=== PATIENT | male | born 1945 | race Caucasian/White ===

== ENCOUNTER → 2018-04-29 08:59 | Outpatient (CLI) | payer MEDICARE, SELFPAY ==
--- NOTE | 2018-04-29 09:09 | US_ITS ---
STUDY: SCROTUM ULTRASOUND REASON FOR EXAM: Male, 72 years old. Bilateral hydroceles TECHNIQUE: Ultrasound evaluation of the scrotum was performed with color Doppler and static murphy-scale imaging. COMPARISON: None. FINDINGS: RIGHT TESTICLE INTRATESTICULAR: There is a normal size of the right testicle. The right testicle measures 3.9 x 2.9 x 2.8 cm. There is a homogenous echotexture. There is normal arterial and normal venous vascularity. There is no demonstrated right testicular mass or cyst. EXTRATESTICULAR: The epididymis is normal in size. The epididymis head measures 2.5 x 2.1 x 1.2 cm. There is normal vascularity of the epididymis. Epididymis head cyst measuring 1.4 x 1.2 x 0.9 cm. There is a large hydrocele. There is no demonstrated varicocele. There is no demonstrated extratesticular mass or cyst. Mild scrotal wall thickening is noted measuring up to 9 mm. LEFT TESTICLE INTRATESTICULAR: There is a normal size of the left testicle. The left testicle measures 3.7 x 2.7 x 2.2 cm. There is a homogenous echotexture. There is normal arterial and normal venous vascularity. There is no demonstrated left testicular mass or cyst. EXTRATESTICULAR: The epididymis is normal in size. The epididymis head measures 1.4 x 1.0 x 0.7 cm. There is normal vascularity of the epididymis. There is no demonstrated epididymal cystic structure. There is a moderate size hydrocele. There is no demonstrated varicocele. There is no demonstrated extratesticular mass or cyst. US/Testicular with Arterial Flow IMPRESSION: Bilateral hydroceles, large on the right and moderate on the left. Cyst in the right epididymis measuring up to 14 mm. Mild right scrotal wall thickening. Electronically Signed: Luis Alberto Mendoza MD at 11:43 EST Tel , Service support ,
[2018-04-29 11:49] LABS: PSA,Total - Annual Screen 0.21 ng/mL (0.00-4.00)
== END ==
PROVIDERS: Family Provider Internal Medicine; PCP Internal Medicine
DX: N40.1 Benign prostatic hyperplasia with lower urinary tract symptoms (principal); R35.1 Nocturia; N43.2 Other hydrocele
CPT/HCPCS: 36415; 76870; 84153; 93976; G0103

== ENCOUNTER → 2018-06-13 11:11 | Outpatient (CLI) | payer MEDICARE, SELFPAY ==
[2017-02-08 08:42] VITALS: BMI 29.2
[2018-06-13 12:47] LABS: Thyroid Stim Hormone (TSH) 1.08 uIU/mL (0.358-3.74)
[2018-06-16 16:05] LABS: Testosterone, Free 6.83 ng/dL (5.00-21.00)
[2018-06-17 08:14] LABS: Testosterone, Total 273 ng/dL (264-916)
== END ==
PROVIDERS: Family Provider Internal Medicine; PCP Internal Medicine
DX: R53.83 Other fatigue (principal)
CPT/HCPCS: 36415; 84402; 84403; 84443

== ENCOUNTER → 2019-05-09 11:18 | Outpatient (CLI) | payer MEDICARE, SELFPAY ==
[2017-02-08 08:42] VITALS: BMI 29.2
[2019-05-09 12:17] LABS: PSA,Total - Annual Screen 0.14 ng/mL (0.00-4.00)
== END ==
PROVIDERS: Family Provider Internal Medicine; PCP Internal Medicine
DX: Z12.5 Encounter for screening for malignant neoplasm of prostate (principal)
CPT/HCPCS: 36415; 84153; G0103

== ENCOUNTER → 2019-12-01 09:38 | Outpatient (CLI) | payer MEDICARE, SELFPAY ==
[2017-02-08 08:42] VITALS: BMI 29.2
[2019-12-01 10:55] LABS: BUN 15 mg/dL (7-18); Glucose 105 mg/dL (74-106)
[2019-12-01 10:56] LABS: ALB/GLOB Ratio 1.1 RATIO (0.9-2.4); AST(SGOT) 24 U/L (15-37); Alanine Aminotransfer ALT/SGPT 38 U/L (16-61); Albumin, Serum 3.6 g/dL (3.2-5.0); Alkaline Phosphatase 55 U/L (45-117); Anion Gap 4 (5-15); BUN/Creat Ratio 13.6 RATIO (10-20); CPK Total, Creatine Kinase 461 U/L (39-308); Calcium,Total 8.5 mg/dL (8.5-10.1); Chloride 110 mmol/L (98-107); Cholesterol 138 mg/dL (200); EST Glomerular Filtration Rate 70 mL/min (>60); Est Glom Filt Rate - Afr Amer 85 mL/min (>60); Globulin 3.3 g/dL (2.2-4.2); High Density Lipoprotein 49 mg/dL; Potassium 4.3 mmol/L (3.5-5.1); Protein, Total 6.9 g/dL (6.4-8.2); Sodium Level 142 mmol/L (136-145); Triglycerides 151 mg/dL; Very Low Density Lipoprotein 30 mg/dL (5-40)
[2019-12-01 13:11] LABS: BNP,B-Type NATRIURETIC PEPTIDE 88.4 pg/mL (0-100)
== END ==
PROVIDERS: PCP Internal Medicine
DX: I50.32 Chronic diastolic (congestive) heart failure (principal); E78.5 Hyperlipidemia, unspecified
CPT/HCPCS: 36415; 80053; 80061; 82550; 83880

== ENCOUNTER → 2020-01-06 | Outpatient (CLI) | payer MEDICARE, SELFPAY ==
[2020-01-06 09:33] LABS: Cholesterol 140 mg/dL (200); High Density Lipoprotein 49 mg/dL; Triglycerides 106 mg/dL; Very Low Density Lipoprotein 21 mg/dL (5-40)
== END | disposition home or self-care (01) ==
LOC: LAB 08:07
PROVIDERS: PCP Internal Medicine
DX: I25.10 Atherosclerotic heart disease of native coronary artery without angina pectoris (principal); E78.5 Hyperlipidemia, unspecified; I44.0 Atrioventricular block, first degree; I49.3 Ventricular premature depolarization; I50.32 Chronic diastolic (congestive) heart failure
CPT/HCPCS: 36415; 80061; 83880

== ENCOUNTER 2021-08-02 12:18 | Emergency (ER) | payer MEDICARE, SELFPAY ==
[2021-08-02 12:22] VITALS: BP 107/66; PULSE 47; RESP 18; TEMP 37.1; O2SAT 95; BMI 31.1
--- NOTE | 2021-08-02 13:19 | EKG12_ITS ---
Test Reason : CHEST Blood Pressure : / mmHG Vent. Rate : 052 BPM Atrial Rate : 052 BPM P-R Int : 456 ms QRS Dur : 118 ms QT Int : 462 ms P-R-T Axes : 025 -58 -36 degrees QTc Int : 429 ms Sinus bradycardia with 1st degree A-V block Left anterior fascicular block Poor R wave progression Abnormal ECG Confirmed by RON CAMPBELL, MALOU ([id number]), food expeditor KWAN GARCIA ([id number]) on 08/04/2021 8:14:01 AM Referred By: KEANU Confirmed By:MALOU VELASQUEZ MD
--- NOTE | 2021-08-02 13:36 | EX.ED.DYSGE1 ---
HPI History of Present Illness Chief Complaint: Syncope Informant: patient and spouse/S.O. Narrative Narrative: Patient presents with a near syncopal episode. He had gone to urgent care because he had had an accidental sandblasted injury of the dorsum of his left hand yesterday. They were cleaning and irrigating this. He got up to wash off his hands at the end and when he stood up he got lightheaded and dizzy. They laid him on the ground. He states he did not pass all the way out but he was close. He never had chest pain or palpitations. He feels fine now. He thinks this was a combination of the medicines that he used, irrigating it out and the fact that he just took his second ever diltiazem dose this morning. He started one yesterday afternoon and then 1 today. His heart rate has been slower in about 50s. [facility] Medical History Atrial fibrillation Congestive heart failure (CHF) Coronary artery disease Home Medications finasteride 5 mg PO QHS 09/23/15 [History Last Taken Unknown] aspirin 81 mg PO DAILY@0800 11/30/15 [History Last Taken Unknown] atorvastatin 80 mg PO DAILY 08/02/21 [History Last Taken Unknown] clopidogrel 75 mg PO DAILY 08/02/21 [History Last Taken Unknown] diltiazem HCl 60 mg PO DAILY 08/02/21 [History Last Taken Unknown] dutasteride 0.5 mg PO DAILY 08/02/21 [History Last Taken Unknown] escitalopram oxalate 10 mg PO QHS 08/02/21 [History Last Taken Unknown] isosorbide mononitrate 30 mg PO DAILY 08/02/21 [History Last Taken Unknown] pantoprazole 40 mg PO DAILY 08/02/21 [History Last Taken Unknown] Allergy/AdvReac Type Severity Reaction Status Date / Time [facility] [[facility] Allergy Rash Verified 08/02/21 12:25 Surgical History H/O heart artery stent History of cardiac radiofrequency ablation (RFA) Social History Smoking Status: Former smoker ROS ROS ED Constitutional Constitutional ED: Denies chills, fever(s) or sweats Eyes Eyes: Denies blurry vision or change in vision ENT ENT ED: Denies rhinorrhea Cardiovascular Cardiovascular: Denies chest pain, palpitations or racing heartbeat Respiratory/Chest Respiratory/Chest: Denies cough or dyspnea Gastrointestinal Gastrointestinal: Denies nausea or vomiting Musculoskeletal Musculoskeletal: Denies arthralgias or myalgias Integumentary Denies rash Neurologic Neurologic: Denies headache(s), paresthesias or weakness Endocrine Endocrinology: Denies polydipsia or polyuria Allergic/Immunologic Allergic/Immunologic ED: Denies mouth swelling or urticaria EXAM Physical Exam Const Vital Signs: 08/02/21 12:22 08/02/21 12:30 08/02/21 14:00 Temperature 98.7 F Temperature Source Temporal Pulse Rate 47 L 51 L Respiratory Rate 18 18 Respiratory Pattern Normal Blood Pressure 107/66 106/85 H Blood Pressure Mean 79 92 Pulse Ox 95 96 Oxygen Delivery Method Room Air Room Air 08/02/21 14:56 Temperature Temperature Source Pulse Rate 52 L Respiratory Rate 19 H Respiratory Pattern Blood Pressure 120/72 Blood Pressure Mean 88 Pulse Ox 95 Oxygen Delivery Method Room Air Positive well nourished and well developed General Appearance ED: well developed and NAD; Negative for cyanotic or diaphoretic HEENT Reports moist mucous membranes Eyes General Eye ED: Negative for pale conjunctiva or scleral icterus Neck no JVD Chest Wall inspection of chest normal and palpation of chest normal Resp normal respiratory effort and clear to auscultation bilaterally Effort and Inspection: Negative for pain with movement Auscultation: Negative for rales, rhonchi or wheezes Cardio regular rhythm Rate: bradycardia and other Other Details: Heart rate is about 55-60. It is regular. It appears to be a first-degree AV block. GI normal to inspection, nondistended, normoactive bowel sounds and non-tender Palpation: soft Back/Spine General Back: CVA tenderness Extremity normal to inspection Extremity Narrative: Patient had been a noted area on the dorsum of his left hand consistent with a sandblasting localized injury. No bleeding. No sign of infection. General Extremety ED: Negative for tenderness Neuro oriented x3 Sensorium / Orientation: alert Psych mental status grossly normal Skin Skin Narrative: Sandblaster erosion dorsum of left hand about 1-1.5 cm around. MDM MDM MDM Narrative Medical decision making narrative: Patient CBC shows minimal anemia at 12.5. White count platelets are normal. Electrolytes show no marked abnormalities. Patient's heart rate is staying in upper 50s to low 60s. He feels fine. He wants to go home. We did have his loop recorder queried. The last event they recorded was 30 July. I talked to the tach. Most of his events have been related to atrial fibrillation which he knows of. He has had about 9% A. fib. The patient feels that this episode today was related to the anesthesia, washing his hand, getting up quickly and the new medicine that he is taken twice in the last day. He is going to hold the diltiazem and speak with his escalator attendant. I think this is a reasonable plan. Lab Data Attestation: I reviewed the patient's lab results. Labs: Laboratory Results - last 24 hr 08/02/21 08/02/21 12:40 12:40 WBC 6.6 RBC 4.09 L Hgb 12.5 L Hct 38.6 L MCV 94.4 H MCH 30.6 MCHC 32.4 RDW Std Deviation 45.8 H RDW Coeff of Gabby 13.2 Plt Count 194 MPV 11.7 Immature Gran % (Auto) 0.300 Neut % (Auto) 70.6 H Lymph % (Auto) 18.4 L [place] % (Auto) 9.6 Eos % (Auto) 0.8 Baso % (Auto) 0.3 Absolute Neuts (auto) 4.7 Absolute Lymphs (auto) 1.21 Nucleated RBC % 0 Sodium 140 Potassium 3.9 Chloride 109 H Carbon Dioxide 27.0 Anion Gap 4 L BUN 19 H Creatinine 1.12 Estim Creat Clear Calc 62.56 Est GFR (MDRD) Af Amer 83 Est GFR (MDRD) Non-Af 68 BUN/Creatinine Ratio 17.0 Glucose 109 H Calcium 8.7 EKG Initial EKG: Comments: EKG done for near syncope read by me shows a sinus rhythm with bradycardic rate at 52 and a first-degree AV block. No acute ST elevation or depression. No ventricular ectopy. He has first-degree AV block. QRS duration is just within normal limits at 118 ms. QTc is normal. Discharge Plan Triage Chief Complaint: Syncope ED Provider: Quinton Benitez Dx/Rx/DC Orders Clinical Impression: Syncope, near, Bradycardia, Medication adverse effect Instructions: ED Dizziness or Syncope ... Prescriptions: No Action aspirin 81 MG tablet,chewable 81 mg PO DAILY@0800 RF: 0 atorvastatin 80 mg tablet 80 mg PO DAILY RF: 0 isosorbide mononitrate 30 mg tablet extended release 24 hr 30 mg PO DAILY RF: 0 clopidogrel 75 mg tablet 75 mg PO DAILY RF: 0 pantoprazole 40 mg tablet,delayed release (DR/EC) 40 mg PO DAILY RF: 0 diltiazem HCl 60 mg tablet 60 mg PO DAILY RF: 0 escitalopram oxalate 10 mg tablet 10 mg PO QHS RF: 0 dutasteride 0.5 mg capsule 0.5 mg PO DAILY RF: 0 finasteride 5 MG tablet 5 mg PO QHS RF: 0 Primary Care Provider: Jaison Charles Referrals: Jaison Charles MD [Primary Care Provider] - As Needed Activity Restrictions/Additional Instructions: Follow-up with your escalator attendant as soon as possible to discuss further medication and plans. Disposition Disposition: Home, Self Care
[2021-08-02 13:49] LABS: Absolute Lymphocyte Count 1.21 X10^3/uL (0.83-4.51); Absolute Neutrophil Count 4.7 X10^3/uL (2.0-7.7); Basophil# 0.02 X10^3/uL; Basophil% 0.3 % (0-1); Eosinophil# 0.05 X10^3/uL; Eosinophils% 0.8 % (0-5); Hematocrit 38.6 % (40-54); Hemoglobin 12.5 g/dL (13.0-16.5); Lymphocyte # 1.21 X10^3/ul (0.83-4.51); Lymphocyte % 18.4 % (19-41); Mean Corp Hgb Conc 32.4 g/dL (32-36); Mean Corpuscular Hgb 30.6 pg (27.0-32.0); Mean Corpuscular Volume 94.4 fL (80-94); Mean Platelet Vol. 11.7 fl (6.2-12.0); Monocyte# 0.63 X10^3/uL; Monocyte% 9.6 % (0-10); NRBC Flagged by Analyzer 0 % (0-5); Neutrophil # 4.66 X10^3/uL (2.7-7.7); Neutrophil % 70.6 % (47-70); Platelet Count 194 K/mm3 (150-450); RBC Distribution Width CV 13.2 % (11.6-14.6); RBC Distribution Width SD 45.8 fl (35.1-43.9); Red Blood Count 4.09 M/mm3 (4.6-6.2); White Blood Count 6.6 K/mm3 (4.4-11.0)
[2021-08-02 14:00] VITALS: BP 106/85; PULSE 51; RESP 18; O2SAT 96
[2021-08-02 14:01] LABS: Anion Gap 4 (5-15); BUN 19 mg/dL (7-18); Calcium,Total 8.7 mg/dL (8.5-10.1); Chloride 109 mmol/L (98-107); Creatinine, Serum 1.12 mg/dL (0.70-1.30); EST Glomerular Filtration Rate 68 mL/min (>60); Est Glom Filt Rate - Afr Amer 83 mL/min (>60); Estimated Creatinine Clearance 62.56 ml/min; Glucose 109 mg/dL (74-106); Potassium 3.9 mmol/L (3.5-5.1); Sodium Level 140 mmol/L (136-145)
[2021-08-02 14:56] VITALS: BP 120/72; PULSE 52; RESP 19; O2SAT 95
[2021-08-02 16:00] VITALS: BP 116/79; PULSE 52; RESP 14; O2SAT 96
[2021-08-02 16:32] VITALS: BP 129/67; PULSE 62; RESP 15; O2SAT 98
== END 2021-08-02 16:32 | disposition home or self-care (01) ==
PROVIDERS: Emergency Provider Emergency Medicine; PCP Internal Medicine; Visit Provider Emergency Medicine
DX: R55 Syncope and collapse (principal); I50.9 Heart failure, unspecified; I48.91 Unspecified atrial fibrillation; I44.0 Atrioventricular block, first degree; R00.1 Bradycardia, unspecified; T46.1X5A Adverse effect of calcium-channel blockers, initial encounter; I25.10 Atherosclerotic heart disease of native coronary artery without angina pectoris; Z79.82 Long term (current) use of aspirin; Z79.899 Other long term (current) drug therapy; Z87.891 Personal history of nicotine dependence
CPT/HCPCS: 80048; 85025; 93005; 96360; 96361; 99284; J7040; A4216

== ENCOUNTER 2022-04-29 11:13 | Inpatient (IN) | payer MEDICARE, SELFPAY ==
[2022-04-29] VITALS (14 sets, daily range): BP systolic 95–112; BP diastolic 57–74; PULSE 70–89; RESP 16–20; TEMP 36.2–37.4; O2SAT 88–94; BMI 29.9; BMI 29.3
--- NOTE | 2022-04-29 12:10 | EKG12_ITS ---
Test Reason : Blood Pressure : / mmHG Vent. Rate : 071 BPM Atrial Rate : 441 BPM P-R Int : 000 ms QRS Dur : 116 ms QT Int : 386 ms P-R-T Axes : 000 -56 034 degrees QTc Int : 419 ms Atrial fibrillation with premature ventricular or aberrantly conducted complexes Left axis deviation Abnormal ECG Confirmed by KEYSHA CAMPBELL, FRANSISCA ([id number]), news videotape editor KWAN GARCIA ([id number]) on 05/02/2022 8:01:38 AM Referred By: ULICES Confirmed By:FRANSISCA CHOPRA MD
--- NOTE | 2022-04-29 12:12 | EDS_ITS ---
HPI History of Present Illness Chief Complaint: Shortness of Breath Narrative Narrative: Patient presents today for cough, generalized weakness, shortness of breath. Apparently he was febrile on and has not rechecked his temperature but has been taking antipyretics at home. He states that he was seen at [facility] failure on and had a chest x-ray which showed a right lower lobe infiltrate. He was tested for COVID, and influenza and these were negative. Patient was placed on azithromycin and has had 2 doses outpatient. He states he does not feel much improved. He is also having right-sided chest pain which wraps around the right ribs which has been constant but progressive. Patient states he is not nauseous but he has decreased p.o. intake. He states he is still making urine. He is not sure if he has had repeat fevers. [facility] Medical History Atrial fibrillation Congestive heart failure (CHF) Coronary artery disease Home Medications atorvastatin 80 mg tablet 80 mg PO DAILY 08/02/21 [History Last Taken Unknown] clopidogrel 75 mg tablet 75 mg PO MOWEFR 08/02/21 [History Last Taken Unknown] dutasteride 0.5 mg capsule 0.5 mg PO DAILY 08/02/21 [History Last Taken Unknown] escitalopram oxalate 10 mg tablet 10 mg PO QHS 08/02/21 [History Last Taken Unknown] isosorbide mononitrate 30 mg tablet,extended release 24 hr 30 mg PO DAILY 08/02/21 [History Last Taken Unknown] pantoprazole 40 mg tablet,delayed release 40 mg PO DAILY 08/02/21 [History Last Taken Unknown] azithromycin 250 mg tablet 250 mg PO DAILY 04/29/22 [History Last Taken Unknown] bromfenac 0.075 % eye drops 1 drp LEFT EYE QHS 04/29/22 [History Last Taken Unknown] cholecalciferol (vitamin D3) 125 mcg (5,000 unit) tablet (Vitamin D3) 125 mcg PO DAILY 04/29/22 [History Last Taken Unknown] polymyxin B sulfate-trimethoprim eye drops 1 drp ophthalmic (eye) Q6H 04/29/22 [History Last Taken Unknown] Allergy/AdvReac Type Severity Reaction Status Date / Time levofloxacin [From Levaquin] Allergy Rash Verified 04/29/22 11:16 Surgical History H/O heart artery stent History of cardiac radiofrequency ablation (RFA) Social History Smoking Status: Former smoker ROS ROS ED Constitutional Constitutional ED: Denies chills or fever(s) Eyes Eyes: Denies change in vision ENT ENT ED: Denies rhinorrhea or sore throat Cardiovascular Cardiovascular: Reports chest pain Respiratory/Chest Respiratory/Chest: Reports cough, dyspnea and dyspnea on exertion Gastrointestinal Gastrointestinal: Denies abdominal pain, nausea or vomiting Genitourinary Genitourinary ED: Denies dysuria or hematuria Musculoskeletal Musculoskeletal: Denies arthralgias Integumentary Denies abscess Neurologic Neurologic: Denies headache(s) or paresthesias Psychiatric Psychiatric: Denies anxiety or depression EXAM Physical Exam Const Vital Signs: 04/29/22 11:14 04/29/22 11:32 04/29/22 12:10 Temperature 97.1 F L Temperature Source Temporal Pulse Rate 77 Respiratory Rate 18 Respiratory Effort Short of Breath Respiratory Pattern Tachypnea Blood Pressure 95/66 Blood Pressure Mean 75 Pulse Ox 93 Oxygen Delivery Method Room Air Room Air Room Air 04/29/22 13:17 Temperature Temperature Source Pulse Rate 76 Respiratory Rate 18 Respiratory Effort Respiratory Pattern Blood Pressure Blood Pressure Mean Pulse Ox 93 Oxygen Delivery Method Room Air Positive well nourished General Appearance ED: NAD; Negative for pallor HEENT atraumatic Eyes PERRL and EOMs intact bilaterally Resp normal respiratory effort Auscultation: rales right throughout Cardio regular rate and regular rhythm GI non-tender Neuro oriented x3 and CN's II-XII intact bilaterally Motor Exam: strength 5/5 throughout Psych mental status grossly normal Skin no wounds General Skin Exam: Negative for jaundice or pallor MDM MDM MDM Narrative Medical decision making narrative: 76-year-old male generalized weakness, shortness of breath. He is also been coughing. He was diagnosed with pneumonia on . He had a dose of azithromycin at [facility] and has had 2 doses at home. He does not feel he is improving. I looked up his previous chest x-ray on [facility] and this was interpreted as right lower lobe infiltrate. His chest x-ray today on my interpretation shows a right upper lobe pneumonia. Patient CBC shows white blood cell count of 10.8. Hemoglobin and hematocrit are stable. Platelets are normal. Renal function and electrolytes within normal limits. High-sensitivity troponin is 14. EKG is atrial fibrillation with controlled ventricular sponsor 71 bpm. Patient is on Eliquis for this. This makes PE unlikely as well with his chest pain and shortness of breath. Patient was ambulated on pulse ox on room air and dropped to 87%. He is very unsteady on his feet. We will discussed this with the hospitalist for admission. Impression: 1. Hypoxic respiratory failure 2. Chest pain 3. Right upper lobe pneumonia 4. Generalized weakness Lab Data Labs: Laboratory Results - last 24 hr 04/29/22 04/29/22 11:30 11:30 WBC 10.8 RBC 4.41 L Hgb 13.5 Hct 42.1 MCV 95.5 H MCH 30.6 MCHC 32.1 RDW Std Deviation 46.4 H RDW Coeff of Gabby 13.1 Plt Count 219 MPV 11.3 Immature Gran % (Auto) 0.500 Neut % (Auto) 80.6 H Lymph % (Auto) 8.7 L [place] % (Auto) 9.8 Eos % (Auto) 0.2 Baso % (Auto) 0.2 Absolute Neuts (auto) 8.7 H Absolute Lymphs (auto) 0.94 Nucleated RBC % 0 Sodium 136 Potassium 3.6 Chloride 101 Carbon Dioxide 28.0 Anion Gap 7 BUN 19 H Creatinine 1.09 Estim Creat Clear Calc 63.33 Est GFR (MDRD) Af Amer 85 Est GFR (MDRD) Non-Af 70 BUN/Creatinine Ratio 17.4 Glucose 131 H Calcium 9.2 Troponin I High Sens 14 Radiography Diagnostic Testing: Clinical Impression(s) from Imaging Studies Chest X-Ray 04/29/22 12:25 IMPRESSION: Findings highly suspicious for right upper lobe pneumonia. Persistent left lower lobe atelectasis. Electronically Signed: Marleny Martines MD at 12:54 EST , Discharge Plan Triage Chief Complaint: Shortness of Breath ED Provider: Allan Maldonado Dx/Rx/DC Orders Prescriptions: No Action atorvastatin 80 mg tablet 80 mg PO DAILY Label Comments: 1 tablet by mouth as directed isosorbide mononitrate 30 mg tablet extended release 24 hr 30 mg PO DAILY Label Comments: 1 tablet by mouth as directed clopidogrel 75 mg tablet 75 mg PO MOWEFR Label Comments: 1 tablet by mouth as directed pantoprazole 40 mg tablet,delayed release (DR/EC) 40 mg PO DAILY Label Comments: 1 tablet by mouth as directed escitalopram oxalate 10 mg tablet 10 mg PO QHS Label Comments: TAKE 1 TABLET BY MOUTH ONCE DAILY dutasteride 0.5 mg capsule 0.5 mg PO DAILY Label Comments: TAKE 1 CAPSULE BY MOUTH ONCE DAILY FOR 90 DAYS azithromycin 250 mg Tablet 250 mg PO DAILY Rx Instructions: start on day 2 of therapy polymyxin B sulf-trimethoprim Drops 1 drp OPHTHALMIC (EYE) Q6H cholecalciferol (vitamin D3) [Vitamin D3] 125 mcg (5,000 unit) Tablet 125 mcg PO DAILY bromfenac 0.075 % Drops 1 drp LEFT EYE QHS Rx Instructions: start on first post-op day Primary Care Provider: Jaison Charles Referrals: Jaison Charles MD [Primary Care Provider] -
[2022-04-29 12:19] LABS: Absolute Lymphocyte Count 0.94 X10^3/uL (0.83-4.51); Absolute Neutrophil Count 8.7 X10^3/uL (2.0-7.7); Basophil# 0.02 X10^3/uL; Basophil% 0.2 % (0-1); Eosinophil# 0.02 X10^3/uL; Eosinophils% 0.2 % (0-5); Hematocrit 42.1 % (40-54); Hemoglobin 13.5 g/dL (13.0-16.5); Lymphocyte # 0.94 X10^3/ul (0.83-4.51); Lymphocyte % 8.7 % (19-41); Mean Corp Hgb Conc 32.1 g/dL (32-36); Mean Corpuscular Hgb 30.6 pg (27.0-32.0); Mean Corpuscular Volume 95.5 fL (80-94); Mean Platelet Vol. 11.3 fl (6.2-12.0); Monocyte# 1.06 X10^3/uL; Monocyte% 9.8 % (0-10); NRBC Flagged by Analyzer 0 % (0-5); Neutrophil # 8.72 X10^3/uL (2.7-7.7); Neutrophil % 80.6 % (47-70); Platelet Count 219 K/mm3 (150-450); RBC Distribution Width CV 13.1 % (11.6-14.6); RBC Distribution Width SD 46.4 fl (35.1-43.9); Red Blood Count 4.41 M/mm3 (4.6-6.2); White Blood Count 10.8 K/mm3 (4.4-11.0)
--- NOTE | 2022-04-29 12:25 | RAD_ITS ---
STUDY: X-RAY CHEST REASON FOR EXAM: Male, 76 years old. Cough TECHNIQUE: PA and lateral views of the chest. COMPARISON: February 08, 2017 FINDINGS: There is interval focal opacity right upper lobe. There is left lower lobe linear density similar to prior study. There is no demonstrated pleural abnormality. There is borderline cardiomegaly. Normal mediastinum and salty. Normal visualized pulmonary arteries. There is atherosclerotic tortuosity of the aortic arch and descending thoracic aorta. Normal visualized thoracic spine. Normal visualized ribs, clavicles, and shoulders. There is no demonstrated abnormality of the visualized soft tissue structures of the upper abdomen. RAD/Chest PA and Lateral IMPRESSION: Findings highly suspicious for right upper lobe pneumonia. Persistent left lower lobe atelectasis. Electronically Signed: Marleny Martines MD at 12:54 EST ,
[2022-04-29] MEDS: 0.9% Normal Saline 1,000 ML 1000 ML IV (12:37)
[2022-04-29 12:38] LABS: Anion Gap 7 (5-15); BUN 19 mg/dL (7-18); BUN/Creat Ratio 17.4 RATIO (10-20); Calcium,Total 9.2 mg/dL (8.5-10.1); Chloride 101 mmol/L (98-107); Creatinine, Serum 1.09 mg/dL (0.70-1.30); EST Glomerular Filtration Rate 70 mL/min (>60); Est Glom Filt Rate - Afr Amer 85 mL/min (>60); Estimated Creatinine Clearance 63.33 ml/min; Glucose 131 mg/dL (74-106); Potassium 3.6 mmol/L (3.5-5.1); Sodium Level 136 mmol/L (136-145); Troponin-I HS (w/2H Reflex) 14 pg/mL (3.0-78.0)
--- NOTE | 2022-04-29 12:57 | ED.RN ---
pt resting in bed with daughter at bedside. spo2 on ra at rest only 89-90% at this time. encouraged to do some deep breathing every once and awhile to keep sats above 90.
--- NOTE | 2022-04-29 13:59 | HP.PCM.HOS_ITS ---
HPI - General General Date of Admission: 04/29/22 Date of Service: 04/29/22 Chief Complaint: SOB, sharp CP HPI Narrative GABRIEL RIVAS, is a 76 M with a history of chronic diastolic heart failure, coronary artery disease status post stenting in 2018 and history of SVT who presented to [facility] 04/29 with worsening shortness of breath and sharp right-sided chest pain. He reports he began to have shortness of breath and malaise on Sunday, he also has had decreased appetite and has been having alternating hot and cold though has not taken his temperature. He was then seen and started on a Z-Endy and has 3 pills left but today began having right-sided chest pain that he reports feels like somebody is stabbing him in the back through to the front with a knife and is also been having shortness of breath that is worsened. Denies productive cough. Denies headache. Did have cataract surgery on Sunday and is using drops for that but denies complaints surrounding that. Denies diarrhea or other bowel problems, urinating well. Denies any kind of swelling. It was reported when he was previously seen he had a right lower lobe infiltrate but today he is noted to have a right upper lobe infiltrate on x-ray which correlates with where his pain is. Had a negative COVID and flu several days ago and denies any sick contacts. It was contemplated inpatient versus outpatient management but when patient stood up to ambulate he immediately became hypoxic to 87 and had to lay back in bed. Hospitalist contacted for admission. He reports continued shortness of breath, general weakness, sharp right-sided chest pain and reports he just generally not feeling well. [facility] Medical History Atrial fibrillation Congestive heart failure (CHF) Coronary artery disease Home Medications atorvastatin 80 mg tablet 80 mg PO DAILY 08/02/21 [History Last Taken Unknown] clopidogrel 75 mg tablet 75 mg PO MOWEFR 08/02/21 [History Last Taken Unknown] dutasteride 0.5 mg capsule 0.5 mg PO DAILY 08/02/21 [History Last Taken Unknown] escitalopram oxalate 10 mg tablet 10 mg PO QHS 08/02/21 [History Last Taken Unknown] isosorbide mononitrate 30 mg tablet,extended release 24 hr 30 mg PO DAILY 08/02/21 [History Last Taken Unknown] pantoprazole 40 mg tablet,delayed release 40 mg PO DAILY 08/02/21 [History Last Taken Unknown] azithromycin 250 mg tablet 250 mg PO DAILY 04/29/22 [History Last Taken Unknown] bromfenac 0.075 % eye drops 1 drp LEFT EYE QHS 04/29/22 [History Last Taken Unknown] cholecalciferol (vitamin D3) 125 mcg (5,000 unit) tablet (Vitamin D3) 125 mcg PO DAILY 04/29/22 [History Last Taken Unknown] polymyxin B sulfate-trimethoprim eye drops 1 drp ophthalmic (eye) Q6H 04/29/22 [History Last Taken Unknown] Allergy/AdvReac Type Severity Reaction Status Date / [facility] Allergy Rash Verified 04/29/22 11:16 Surgical History H/O heart artery stent History of cardiac radiofrequency ablation (RFA) Social History Smoking Status: Former smoker Vital Signs Vital Signs Vital Signs: 04/29/22 11:14 04/29/22 11:32 04/29/22 12:10 Temperature 97.1 F L Temperature Source Temporal Pulse Rate 77 Respiratory Rate 18 Respiratory Effort Short of Breath Respiratory Pattern Tachypnea Blood Pressure 95/66 Blood Pressure Mean 75 Pulse Ox 93 Oxygen Delivery Method Room Air Room Air Room Air 04/29/22 13:17 04/29/22 13:48 Temperature 97.8 F Temperature Source Temporal Pulse Rate 76 73 Respiratory Rate 18 20 H Respiratory Effort Respiratory Pattern Blood Pressure 100/60 Blood Pressure Mean 73 Pulse Ox 93 94 Oxygen Delivery Method Room Air Room Air Weight Weight: 97.522 kg Body Mass Index (BMI) 29.9 Physical Exam Const alert and oriented x3 HEENT normocephalic and head/scalp atraumatic Eyes Eyes Narrative: Extraocular movements grossly intact, does have slight erythema near iris on left eye Neck supple Resp Resp Narrative: Expiratory wheezes primarily on the right hemithorax, no significant increased work of breathing while laying down but did when trying to sit up in bed or make any effortful movement Cardio Cardio Narrative: Regular rate GI soft to palpation, non-tender and non-distended Extremity normal to inspection Extremity Narrative: Moving all extremities Neuro Neuro Narrative: No overt focal neurological deficits appreciated Psych affect normal Results Lab / Micro Data Result Diagrams: 04/29/22 11:30 04/29/22 11:30 Labs: Laboratory Results - last 24 hr 04/29/22 11:30: WBC 10.8, RBC 4.41 L, Hgb 13.5, Hct 42.1, MCV 95.5 H, MCH 30.6, MCHC 32.1, RDW Std Deviation 46.4 H, RDW Coeff of Gabby 13.1, Plt Count 219, MPV 11.3, Immature Gran % (Auto) 0.500, Neut % (Auto) 80.6 H, Lymph % (Auto) 8.7 L, [place] % (Auto) 9.8, Eos % (Auto) 0.2, Baso % (Auto) 0.2, Absolute Neuts (auto) 8.7 H, Absolute Lymphs (auto) 0.94, Nucleated RBC % 0 04/29/22 11:30: Sodium 136, Potassium 3.6, Chloride 101, Carbon Dioxide 28.0, Anion Gap 7, BUN 19 H, Creatinine 1.09, Estim Creat Clear Calc 63.33, Est GFR (MDRD) Af Amer 85, Est GFR (MDRD) Non-Af 70, BUN/Creatinine Ratio 17.4, Glucose 131 H, Calcium 9.2, Troponin I High Sens 14 Radiology Impression Chest X-Ray 04/29/22 12:25 IMPRESSION: Findings highly suspicious for right upper lobe pneumonia. Persistent left lower lobe atelectasis. Electronically Signed: Marleny Martines MD at 12:54 EST Reading Location ID and State: [facility] / [place] Tel , Service support , Assessment & Plan Assessment/Plan (1) CAP (community acquired pneumonia): PLAN: Plan #Hypoxia associated with community-acquired pneumonia Failed outpatient treatment and hypoxic with any movement O2 sat goal 92% Will start nebs given wheezing Failed azithromycin Agreeable to levofloxacin. Reports he got thrush in the past from this, after discussing that that is something we can treat if it recurs he was agreeable We will get urine antigens, respiratory panel, repeat COVID with PCR Incentive spirometry #Heart failure with preserved ejection fraction Has grade 1 diastolic dysfunction Most recent echo 03/23/2022 with grade 1 diastolic dysfunction, EF 45 to 50% #Paroxysmal atrial fibrillation Appears to chronically be on Eliquis #Coronary artery disease On Plavix and atorvastatin Charges/Coding Visit Charges OBSV E&M: 92583 Initial observation care L2
[2022-04-29 14:16] LABS: Reflex Troponin-HS? (from REC) Y
[2022-04-29 15:36] LABS: Troponin-I HS 14 pg/mL (3.0-78.0)
[2022-04-29] MEDS: Ipratropium/Albuterol Sulfate 3 ML AMPUL.NEB INHALATION ×2 (15:40→18:52)
[2022-04-29] MEDS: levoFLOXacin IV 750 MG/150 ML BAG 100 MG IV (16:39)
[2022-04-29] MEDS: 0.9% Saline Lock 10 ML Syringe IV (16:41)
[2022-04-29 18:09] LABS: M R Staph aureus DNA By PCR Negative (Negative); Probe Check PASS; Specimen Processing Control PASS
[2022-04-29] MEDS: POLYMYXIN B SULF/TRIMETHOPRIM 10 ML DROPS OPHTHALMIC ×2 (22:01→23:51)
[2022-04-29] MEDS: Escitalopram Oxalate 10 MG Tablet PO (22:01)
[2022-04-29] MEDS: APIXABAN 5 MG TABLET PO (22:01)
[2022-04-29] MEDS: Atorvastatin Calcium 80 MG Tablet PO (22:01)
[2022-04-30] VITALS (17 sets, daily range): BP systolic 102–134; BP diastolic 62–80; PULSE 68–87; RESP 16–21; TEMP 36.5–37; O2SAT 91–94
[2022-04-30] MEDS: Ipratropium/Albuterol Sulfate 3 ML AMPUL.NEB INHALATION ×4 (00:48→18:41)
[2022-04-30 04:56] LABS: Absolute Lymphocyte Count 0.96 X10^3/uL (0.83-4.51); Absolute Neutrophil Count 7.6 X10^3/uL (2.0-7.7); Basophil# 0.02 X10^3/uL; Basophil% 0.2 % (0-1); Eosinophil# 0.04 X10^3/uL; Eosinophils% 0.4 % (0-5); Hematocrit 36.9 % (40-54); Lymphocyte # 0.96 X10^3/ul (0.83-4.51); Lymphocyte % 9.7 % (19-41); Mean Corp Hgb Conc 32.5 g/dL (32-36); Mean Corpuscular Hgb 30.8 pg (27.0-32.0); Mean Corpuscular Volume 94.6 fL (80-94); Mean Platelet Vol. 10.2 fl (6.2-12.0); Monocyte# 1.16 X10^3/uL; Monocyte% 11.8 % (0-10); NRBC Flagged by Analyzer 0 % (0-5); Neutrophil # 7.58 X10^3/uL (2.7-7.7); Neutrophil % 76.9 % (47-70); Platelet Count 247 K/mm3 (150-450); RBC Distribution Width CV 13.2 % (11.6-14.6); RBC Distribution Width SD 45.9 fl (35.1-43.9); White Blood Count 9.9 K/mm3 (4.4-11.0)
[2022-04-30 05:59] LABS: ALB/GLOB Ratio 0.6 RATIO (0.9-2.4); AST(SGOT) 31 U/L (15-37); Alanine Aminotransfer ALT/SGPT 36 U/L (16-61); Albumin, Serum 2.2 g/dL (3.2-5.0); Alkaline Phosphatase 44 U/L (45-117); Anion Gap 9 (5-15); BUN 17 mg/dL (7-18); BUN/Creat Ratio 18.9 RATIO (10-20); Chloride 103 mmol/L (98-107); EST Glomerular Filtration Rate 87 mL/min (>60); Est Glom Filt Rate - Afr Amer 106 mL/min (>60); Estimated Creatinine Clearance 76.69 ml/min; Globulin 3.9 g/dL (2.2-4.2); Glucose 131 mg/dL (74-106); Magnesium 2.3 mg/dL (1.6-2.6); Potassium 3.2 mmol/L (3.5-5.1); Protein, Total 6.1 g/dL (6.4-8.2); Sodium Level 136 mmol/L (136-145); Thyroid Stim Hormone (TSH) 1.17 uIU/mL (0.358-3.74)
--- NOTE | 2022-04-30 06:40 | CON.PCM.CC_ITS ---
Assessment & Plan Assessment/Plan (1) CAP (community acquired pneumonia): PLAN: Plan RECOMMENDATIONS: 1. Continue to wean supplemental oxygen to maintain saturations at or above 90%. 2. Encourage incentive spirometer use and mobilize patient as tolerated. 3. Continue Levaquin to complete 7 days of therapy. 4. Start PEP therapy today. 5. Obtain follow-up chest x-ray. IMPRESSIONS: 1. Community-acquired pneumonia with associated hypoxemia The patient presented to the hospital with worsening respiratory symptoms and pleuritic type chest pain after failed outpatient treatment for community- acquired pneumonia. Infectious work-up has been largely unrevealing to date. The patient does have a small supplemental oxygen requirement. Plan to continue to wean O2 to maintain oxygen saturations at or above 90%. Continue Levaquin as ordered. The patient will need to complete a 7-day treatment course. Continue to encourage incentive spirometer use and mobilize patient as tolerated. PEP therapy will be added today. Obtain follow-up chest x-ray this morning. 2. History of heart failure with preserved ejection fraction/paroxysmal atrial fibrillation/coronary artery disease Complicates care, management, recovery and prognosis. Continue home medications as indicated. This note was generated with [employer] dictation software. It may contain incorrect words, spelling, and punctuation that were not noted in checking the note before signing. HPI Consult Data Date of Consult: 04/30/22 HPI Narrative Reason for Consultation: Community-acquired pneumonia with hypoxemia HPI Narrative: The patient is a 76-year-old male, with a history as outlined below, who presented to the emergency department on April 29 with generalized weakness, malaise, cough and shortness of breath. The patient has no pre-existing lung conditions, nor does he utilize supplemental oxygen routinely. The patient was recently evaluated at [facility] and started on azithromycin. However, yesterday he developed right-sided pleuritic type chest pain, which prompted his emergency department evaluation. He also apparently tested n egative previously for COVID-19. On presentation to the emergency department, the patient was initially noted to be afebrile with a blood pressure of 95/66 mmHg. He was saturating 93% on room air. Laboratory evaluation revealed no evidence of a leukocytosis. Chemistry profile was unremarkable. COVID PCR was negative. MRSA screen was negative. Chest x-ray demonstrated a right upper lobe consolidation. The patient ultimately had to be placed on supplemental oxygen while in the emergency de partment, which prompted his need to be admitted to the hospital. This morning, the patient does report feeling somewhat better than yesterday, but still has residual right-sided chest discomfort. [facility] Medical History (Updated 04/29/22 @ 14:51 by Susana Chacon) Atrial fibrillation Chest pain Congestive heart failure (CHF) Coronary artery disease Sleep apnea Home Medications atorvastatin 80 mg tablet 80 mg PO DAILY 08/02/21 [History Last Taken Unknown] clopidogrel 75 mg tablet 75 mg PO MOWEFR 08/02/21 [History Last Taken Unknown] dutasteride 0.5 mg capsule 0.5 mg PO DAILY 08/02/21 [History Last Taken Unknown] escitalopram oxalate 10 mg tablet 10 mg PO QHS 08/02/21 [History Last Taken U nknown] pantoprazole 40 mg tablet,delayed release 40 mg PO DAILY 08/02/21 [History Last Taken Unknown] azithromycin 250 mg tablet 250 mg PO DAILY 04/29/22 [History Last Taken Unknown] bromfenac 0.075 % eye drops 1 drp LEFT EYE QHS 04/29/22 [History Last Taken Unknown] cholecalciferol (vitamin D3) 125 mcg (5,000 unit) tablet (Vitamin D3) 125 mcg PO DAILY 04/29/22 [History Last Taken Unknown] polymyxin B sulfate-trimethoprim eye drops 1 drp ophthalmic (eye) Q6H 04/29/22 [History Last Taken Unknown] Allergy/AdvReac Type Severity Reaction Status Date / Time levofloxacin [From Levaquin] Allergy Rash Verified 04/29/22 11:16 Surgical History H/O heart artery stent History of cardiac radiofrequency ablation (RFA) Social History Smoking Status: Former smoker ROS Constitutional Constitutional: Reports fatigue and malaise Eyes Eyes: Denies blurry vision or change in vision ENT HEENT: Denies dizziness, dysphagia, epistaxis or headache(s) Cardiovascular Cardiovascular: Reports chest pain Respiratory/Chest Respiratory/Chest: Reports cough and dyspnea Gastrointestinal Gastrointestinal: Denies abdominal pain, diarrhea, nausea or vomiting Genitourinary Genitourinary: Denies difficulty urinating Musculoskeletal Musculoskeletal: Denies arthralgias, back pain or joint pain Integumentary Integumentary: Denies lesions, rash or skin ulcer Neurologic Neurologic: Denies abnormal gait or abnormal speech Psychiatric Psychiatric: Denies anxiety Endocrine Endocrinology: Reports fatigue Hematologic/Lymphatic Hematologic/Lymphatic: Denies easy bleeding or easy bruising Physical Exam Const alert, oriented x3 and no apparent distress General Appearance: cooperative HEENT normocephalic, head/scalp atraumatic and moist oral mucous membranes Eyes PERRL, EOMs intact bilaterally and conjunctivae normal Neck supple General: trachea midline Chest inspection of chest normal Resp normal respiratory effort Resp Narrative: Grossly clear to auscultation bilaterally. Cardio regular rate and regular rhythm GI normal to inspection, nondistended, normoactive bowel sounds Extremity no clubbing, cyanosis or edema Skin no rashes or lesions noted Neuro oriented x3, CN's II-XII intact bilaterally and moves all extremities Psych cooperative and affect normal Lab / Micro Data Result Diagrams: 04/30/22 04:30 04/30/22 04:30 Labs: Laboratory Results - last 24 hr 04/29/22 11:30: WBC 10.8, RBC 4.41 L, Hgb 13.5, Hct 42.1, MCV 95.5 H, MCH 30.6, MCHC 32.1, RDW Std Deviation 46.4 H, RDW Coeff of Gabby 13.1, Plt Count 219, MPV 11.3, Immature Gran % (Auto) 0.500, Neut % (Auto) 80.6 H, Lymph % (Auto) 8.7 L, [place] % (Auto) 9.8, Eos % (Auto) 0.2, Baso % (Auto) 0.2, Absolute Neuts (auto) 8.7 H, Absolute Lymphs (auto) 0.94, Nucleated RBC % 0 04/29/22 11:30: Sodium 136, Potassium 3.6, Chloride 101, Carbon Dioxide 28.0, Anion Gap 7, BUN 19 H, Creatinine 1.09, Estim Creat Clear Calc 63.33, Est GFR (MDRD) Af Amer 85, Est GFR (MDRD) Non-Af 70, BUN/Creatinine Ratio 17.4, Glucose 131 H, Calcium 9.2, Troponin I High Sens 14 04/29/22 14:40: Troponin I High Sens 14 04/29/22 16:10: MRSA (PCR) Negative 04/29/22 18:55: COVID-19 (YOSSI) Not Detected 04/30/22 04:30: WBC 9.9, RBC 3.90 L, Hgb 12.0 L, Hct 36.9 L, MCV 94.6 H, MCH 30.8, MCHC 32.5, RDW Std Deviation 45.9 H, RDW Coeff of Gabby 13.2, Plt Count 247, MPV 10.2, Immature Gran % (Auto) 1.000 H, Neut % (Auto) 76.9 H, Lymph % (Auto) 9.7 L, [place] % (Auto) 11.8 H, Eos % (Auto) 0.4, Baso % (Auto) 0.2, Absolute Neuts (auto) 7.6, Absolute Lymphs (auto) 0.96, Nucleated RBC % 0 04/30/22 04:30: Sodium 136, Potassium 3.2 L, Chloride 103, Carbon Dioxide 24.0, Anion Gap 9, BUN 17, Creatinine 0.90, Estim Creat Clear Calc 76.69, Est GFR (MDRD) Af Amer 106, Est GFR (MDRD) Non-Af 87, BUN/Creatinine Ratio 18.9, Glucose 131 H, Calcium 8.0 L, Magnesium 2.3, Total Bilirubin 0.80, AST 31, ALT 36, Alkaline Phosphatase 44 L, Total Protein 6.1 L, Albumin 2.2 L, Globulin 3.9, Albumin/Globulin Ratio 0.6 L, TSH 1.17 Micro: Microbiology 04/29/22 15:35 Mucosa - Nose Respiratory Panel (PCR) - Final 04/29/22 18:00 Urine, Clean Catch Legionella Antigen - Final 04/29/22 18:00 Urine, Clean Catch Streptococcus pneumoniae Antigen (M - Final 04/29/22 15:35 Mucosa - Nose Influenza Types A,B Direct FA (DANIELLA) - Final Radiology Impression Chest X-Ray 04/29/22 12:25 IMPRESSION: Findings highly suspicious for right upper lobe pneumonia. Persistent left lower lobe atelectasis. Electronically Signed: Marleny Martines MD at 12:54 EST Reading Location ID and State: [facility] / [place] Tel , Service support , Charges/Coding Visit Charges Inpatient E&M: 96284 Init Hosp L3
--- NOTE | 2022-04-30 07:09 | RAD_ITS ---
EXAM: XR CHEST, 1 VIEW CLINICAL INDICATION: Pneumonia, Hypoxia TECHNIQUE: Frontal view of the chest. This report was created using [employer] report generation technology. COMPARISON: 04/29/2022. FINDINGS: LUNGS AND PLEURAL SPACES: Decreasing interstitial infiltrates in the right upper lobe. No pneumothorax. No effusion. HEART: Cardiomegaly is unchanged. MEDIASTINUM: Central airways and mediastinal contour are unremarkable. BONES/JOINTS: Unremarkable. SOFT TISSUES: Unremarkable. TUBES, LINES AND DEVICES: Implantable loop recorder device in the left lower chest is unchanged. RAD/Chest 1 View (Portable) IMPRESSION: Improving right upper lobe pneumonia. Electronically Signed: Timur Miller MD at 8:45 EST ,
--- NOTE | 2022-04-30 07:19 | CPS ---
Pt is supposed to be set on a CPAP machine but machine has not arrived yet. He will follow up w/his Dr after discharge. He does not know his CPAP setting.
[2022-04-30] MEDS: Pantoprazole Sodium 40 MG Tablet PO ×2 (07:40)
[2022-04-30] MEDS: APIXABAN 5 MG TABLET PO ×2 (07:41→21:03)
[2022-04-30] MEDS: Senna/Docusate Sodium 1 Tablet 2 TABLET PO (07:44)
[2022-04-30] MEDS: levoFLOXacin IV 750 MG/150 ML BAG 100 MG IV (10:06)
[2022-04-30] MEDS: Finasteride 5 MG Tablet PO (10:07)
[2022-04-30] MEDS: 0.9% Saline Lock 10 ML Syringe IV (10:08)
--- NOTE | 2022-04-30 10:13 | PN.HOSP_ITS ---
Subjective Subjective Continues to have shortness of breath and cough though slightly improved from yesterday despite now having 3 L of O2 in place on rest. Sharp pain in chest slightly improved. Objective Data Objective Data Vital Signs: Vital Signs Temp Pulse Resp BP Pulse Ox O2 Del Method O2 Flow Rate 97.7 F L 87 18 111/62 94 Nasal Cannula 3 04/30/22 09:32 04/30/22 09:32 04/30/22 09:32 04/30/22 09:32 04/30/22 09:32 04/30/22 09:32 04/30/22 09:59 Oxygen Flow Rate (L/min) 3 Oxygen Delivery Method Nasal Cannula Weight: 95.453 kg Body Mass Index (BMI) 29.3 Intake & Output: Intake and Output for Last 24 Hours 04/28/22 04/29/22 04/30/22 23:59 23:59 23:59 Intake Total 1150.25 / 1350.25 600.25 / 600.25 Balance 1150.25 / 1350.25 600.25 / 600.25 Lab / Micro Data Result Diagrams: 04/30/22 04:30 04/30/22 04:30 Labs: Laboratory Results - last 24 hr 04/29/22 11:30: WBC 10.8, RBC 4.41 L, Hgb 13.5, Hct 42.1, MCV 95.5 H, MCH 30.6, MCHC 32.1, RDW Std Deviation 46.4 H, RDW Coeff of Gabby 13.1, Plt Count 219, MPV 11.3, Immature Gran % (Auto) 0.500, Neut % (Auto) 80.6 H, Lymph % (Auto) 8.7 L, [place] % (Auto) 9.8, Eos % (Auto) 0.2, Baso % (Auto) 0.2, Absolute Neuts (auto) 8.7 H, Absolute Lymphs (auto) 0.94, Nucleated RBC % 0 04/29/22 11:30: Sodium 136, Potassium 3.6, Chloride 101, Carbon Dioxide 28.0, Anion Gap 7, BUN 19 H, Creatinine 1.09, Estim Creat Clear Calc 63.33, Est GFR (MDRD) Af Amer 85, Est GFR (MDRD) Non-Af 70, BUN/Creatinine Ratio 17.4, Glucose 131 H, Calcium 9.2, Troponin I High Sens 14 04/29/22 14:40: Troponin I High Sens 14 04/29/22 16:10: MRSA (PCR) Negative 04/29/22 18:55: COVID-19 (YOSSI) Not Detected 04/30/22 04:30: WBC 9.9, RBC 3.90 L, Hgb 12.0 L, Hct 36.9 L, MCV 94.6 H, MCH 30.8, MCHC 32.5, RDW Std Deviation 45.9 H, RDW Coeff of Gabby 13.2, Plt Count 247, MPV 10.2, Immature Gran % (Auto) 1.000 H, Neut % (Auto) 76.9 H, Lymph % (Auto) 9.7 L, [place] % (Auto) 11.8 H, Eos % (Auto) 0.4, Baso % (Auto) 0.2, Absolute Neuts (auto) 7.6, Absolute Lymphs (auto) 0.96, Nucleated RBC % 0 04/30/22 04:30: Sodium 136, Potassium 3.2 L, Chloride 103, Carbon Dioxide 24.0, Anion Gap 9, BUN 17, Creatinine 0.90, Estim Creat Clear Calc 76.69, Est GFR (MDRD) Af Amer 106, Est GFR (MDRD) Non-Af 87, BUN/Creatinine Ratio 18.9, Glucose 131 H, Calcium 8.0 L, Magnesium 2.3, Total Bilirubin 0.80, AST 31, ALT 36, Alkaline Phosphatase 44 L, Total Protein 6.1 L, Albumin 2.2 L, Globulin 3.9, Albumin/Globulin Ratio 0.6 L, TSH 1.17 Micro: Microbiology 04/29/22 15:35 Mucosa - Nose Respiratory Panel (PCR) - Final 04/29/22 18:00 Urine, Clean Catch Legionella Antigen - Final 04/29/22 18:00 Urine, Clean Catch Streptococcus pneumoniae Antigen (M - Final 04/29/22 15:35 Mucosa - Nose Influenza Types A,B Direct FA (DANIELLA) - Final Radiography Diagnostic Testing: Radiology Impression Chest X-Ray 04/29/22 12:25 IMPRESSION: Findings highly suspicious for right upper lobe pneumonia. Persistent left lower lobe atelectasis. Electronically Signed: Marleny Martines MD at 12:54 EST , Chest X-Ray 04/30/22 07:09 IMPRESSION: Improving right upper lobe pneumonia. Electronically Signed: Timur Miller MD at 8:45 EST , Physical Exam Const alert and oriented x3 HEENT normocephalic and head/scalp atraumatic Eyes Eyes Narrative: Extraocular movements grossly intact Neck supple Resp Resp Narrative: Frequently coughing, no further expiratory wheezes Cardio Cardio Narrative: Regular rate GI soft to palpation, non-tender and non-distended Extremity normal to inspection Extremity Narrative: Moving all extremities Neuro Neuro Narrative: No overt focal neurological deficits appreciated Psych affect normal Assessment & Plan Assessment/Plan (1) CAP (community acquired pneumonia): PLAN: Plan #Hypoxia associated with community-acquired pneumonia Failed outpatient treatment and hypoxic with any movement O2 sat goal 92% Will start nebs given wheezing Failed azithromycin Agreeable to levofloxacin. Reports he got thrush in the past from this, after discussing that that is something we can treat if it recurs he was agreeable We will get urine antigens, respiratory panel, repeat COVID with PCR Incentive spirometry 04/30: Chest x-ray with improving pneumonia, continue to wean O2, levofloxacin for 7 days. Continue breathing treatments. Urine antigens negative, influenza and COVID-negative, respiratory panel negative #Heart failure with preserved ejection fraction Has grade 1 diastolic dysfunction Most recent echo 03/23/2022 with grade 1 diastolic dysfunction, EF 45 to 50% #Paroxysmal atrial fibrillation Continue Eliquis #Coronary artery disease On Plavix and atorvastatin Charges/Coding Visit Charges OBSV E&M: 02575 Subsequent observation care L2
[2022-04-30] MEDS: Potassium Chloride Oral Tablet 20 MEQ 40 MEQ PO (10:38)
[2022-04-30] MEDS: POLYMYXIN B SULF/TRIMETHOPRIM 10 ML DROPS OPHTHALMIC ×3 (10:39→21:04)
[2022-04-30] MEDS: Atorvastatin Calcium 80 MG Tablet PO (21:03)
[2022-04-30] MEDS: Escitalopram Oxalate 10 MG Tablet PO (21:03)
[2022-05-01] VITALS (16 sets, daily range): BP systolic 104–131; BP diastolic 59–86; PULSE 70–91; RESP 16–22; TEMP 36.7–37; O2SAT 93–94
[2022-05-01] MEDS: Ipratropium/Albuterol Sulfate 3 ML AMPUL.NEB INHALATION ×5 (01:22→19:26)
[2022-05-01 06:20] LABS: Absolute Lymphocyte Count 1.04 X10^3/uL (0.83-4.51); Absolute Neutrophil Count 6.9 X10^3/uL (2.0-7.7); Basophil# 0.03 X10^3/uL; Basophil% 0.3 % (0-1); Eosinophil# 0.12 X10^3/uL; Eosinophils% 1.3 % (0-5); Hematocrit 37.6 % (40-54); Hemoglobin 12.2 g/dL (13.0-16.5); Lymphocyte # 1.04 X10^3/ul (0.83-4.51); Mean Corp Hgb Conc 32.4 g/dL (32-36); Mean Corpuscular Hgb 30.7 pg (27.0-32.0); Mean Corpuscular Volume 94.5 fL (80-94); Mean Platelet Vol. 9.8 fl (6.2-12.0); Monocyte# 1.23 X10^3/uL; Monocyte% 13.1 % (0-10); NRBC Flagged by Analyzer 0 % (0-5); Neutrophil # 6.85 X10^3/uL (2.7-7.7); Neutrophil % 72.7 % (47-70); Platelet Count 303 K/mm3 (150-450); RBC Distribution Width CV 13.2 % (11.6-14.6); RBC Distribution Width SD 46.1 fl (35.1-43.9); Red Blood Count 3.98 M/mm3 (4.6-6.2); White Blood Count 9.4 K/mm3 (4.4-11.0)
[2022-05-01 06:41] LABS: Anion Gap 8 (5-15); BUN 14 mg/dL (7-18); BUN/Creat Ratio 15.3 RATIO (10-20); Calcium,Total 8.5 mg/dL (8.5-10.1); Chloride 105 mmol/L (98-107); Creatinine, Serum 0.92 mg/dL (0.70-1.30); EST Glomerular Filtration Rate 86 mL/min (>60); Est Glom Filt Rate - Afr Amer 104 mL/min (>60); Estimated Creatinine Clearance 75.03 ml/min; Glucose 129 mg/dL (74-106); Potassium 3.5 mmol/L (3.5-5.1); Sodium Level 139 mmol/L (136-145)
--- NOTE | 2022-05-01 06:45 | PN.CC_ITS ---
Documented by User: Dr. Pierce Fountain MD 05/01/22 13:38 Assessment & Plan Assessment/Plan (1) CAP (community acquired pneumonia): PLAN: Plan RECOMMENDATIONS: 1. Continue to wean supplemental oxygen to maintain saturations at or above 90%. 2. Encourage incentive spirometer and mobilize patient as tolerated. 3. Continue Levaquin to complete 7 days of therapy. Okay to transition to p.o. from my perspective 4. Continue PEP therapy. 5. Encourage ambulation as tolerated IMPRESSIONS: 1. Community-acquired pneumonia with associated hypoxemia The patient presented to the hospital with worsening respiratory symptoms and pleuritic type chest pain after failed outpatient treatment for community- acquired pneumonia. Infectious work-up has been largely unrevealing to date. The patient does have a small supplemental oxygen requirement. Plan to continue to wean O2 to maintain oxygen saturations at or above 90%. Continue Levaquin as ordered. Likely okay to transition to p.o. as patient is tolerating this well. Follow-up chest x-ray demonstrates improving right upper lobe pneumonia. The patient will need to complete a 7-day treatment course. Continue to encourage incentive spirometer use and mobilize patient as tolerated. Continue to encourage PEP therapy to mobilize any secretions. 2. History of heart failure with preserved ejection fraction/paroxysmal atr ial fibrillation/coronary artery disease Complicates care, management, recovery and prognosis. Continue home medications as indicated. This note was generated with [employer] dictation software. It may contain incorrect words, spelling, and punctuation that were not noted in checking the note before signing. Subjective Subjective Patient reclined in bed, quietly resting. Patient easily awakens to questions a nd states he feels better as long as I am not doing anything. Patient continues to report decreased appetite, as well as right upper chest pain, worse with movement. Patient was able to ambulate to the door only with PT yesterday. Patient is reporting increased production with cough. Patient reports developing thrush previously while on Levaquin, but denies any shortness of breath, lip swelling or sore throat at this time Objective Data Objective Data Vital Signs: Vital Signs Temp Pulse Resp BP Pulse Ox O2 Del Method O2 Flow Rate 36.7 C 77 18 121/78 H 93 Nasal Cannula 3 05/01/22 02:00 05/01/22 04:30 05/01/22 02:00 05/01/22 02:00 05/01/22 02:00 05/01/22 04:00 05/01/22 04:00 Oxygen Flow Rate (L/min) 3 Oxygen Delivery Method Nasal Cannula Weight: 95.453 kg Body Mass Index (BMI) 29.3 Intake & Output: Intake and Output for Last 24 Hours 04/29/22 04/30/22 05/01/22 23:59 23:59 23:59 Intake Total 1150.25 / 1350.25 2650.25 / 3450.25 1400 / 1400 Balance 1150.25 / 1350.25 2650.25 / 3450.25 1400 / 1400 Lab / Micro Data Attestation: I reviewed the patient's lab results. Result Diagrams: 05/01/22 05:40 05/01/22 05:40 Labs: Laboratory Results - last 24 hr 05/01/22 05:40: WBC 9.4, RBC 3.98 L, Hgb 12.2 L, Hct 37.6 L, MCV 94.5 H, MCH 30.7, MCHC 32.4, RDW Std Deviation 46.1 H, RDW Coeff of Gabby 13.2, Plt Count 303, MPV 9.8, Immature Gran % (Auto) 1.600 H, Neut % (Auto) 72.7 H, Lymph % (Auto) 11.0 L, [place] % (Auto) 13.1 H, Eos % (Auto) 1.3, Baso % (Auto) 0.3, Absolute Neuts (auto) 6.9, Absolute Lymphs (auto) 1.04, Nucleated RBC % 0 05/01/22 05:40: Sodium 139, Potassium 3.5, Chloride 105, Carbon Dioxide 26.0, Anion Gap 8, BUN 14, Creatinine 0.92, Estim Creat Clear Calc 75.03, Est GFR (MDRD) Af Amer 104, Est GFR (MDRD) Non-Af 86, BUN/Creatinine Ratio 15.3, Glucose 129 H, Calcium 8.5 Micro: Microbiology 04/29/22 15:35 Mucosa - Nose Respiratory Panel (PCR) - Final 04/29/22 18:00 Urine, Clean Catch Legionella Antigen - Final 04/29/22 18:00 Urine, Clean Catch Streptococcus pneumoniae Antigen (M - Ashley l 04/29/22 15:35 Mucosa - Nose Influenza Types A,B Direct FA ([facility]) - Final Radiography Diagnostic Testing: Radiology Impression Chest X-Ray 04/30/22 07:09 IMPRESSION: Improving right upper lobe pneumonia. Electronically Signed: Timur Miller MD at 8:45 EST , Physical Exam Const alert, oriented x3 and no apparent distress General Appearance: cooperative HEENT normocephalic, head/scalp atraumatic and moist oral mucous membranes Eyes PERRL, EOMs intact bilaterally and conjunctivae normal Neck supple General: trachea midline Chest inspection of chest normal Resp normal respiratory effort Resp Narrative: Rales noted on right while in the right decubitus position Auscultation: diminished lung sounds; Negative for wheezes Cardio regular rate, regular rhythm, S1 normal heart sound, S2 normal heart sound, no murmurs, no rub and no gallops GI normal to inspection, nondistended, normoactive bowel sounds Extremity no clubbing, cyanosis or edema Skin no rashes or lesions noted Neuro oriented x3, CN's II-XII intact bilaterally and moves all extremities Psych cooperative and affect normal Charges/Coding Visit Charges Inpatient E&M: 30231 Subs Hosp L2 Documented by User: HILLARY MIR 05/01/22 08:18 Assessment & Plan Assessment/Plan (1) CAP (community acquired pneumonia): PLAN: Plan RECOMMENDATIONS: 1. Continue to wean supplemental oxygen to maintain saturations at or above 90%. 2. Encourage incentive spirometer and mobilize patient as tolerated. 3. Continue Levaquin to complete 7 days of therapy. 4. Continue PEP therapy. 5. Obtain follow-up chest x-ray. IMPRESSIONS: 1. Community-acquired pneumonia with associated hypoxemia The patient presented to the hospital with worsening respiratory symptoms and pleuritic type chest pain after failed outpatient treatment for community- acquired pneumonia. Infectious work-up has been largely unrevealing to date. The patient does have a small supplemental oxygen requirement. Plan to continue to wean O2 to maintain oxygen saturations at or above 90%. Continue Levaquin as ordered. Follow-up chest x-ray demonstrates improving right upper lobe pneumonia. The patient will need to complete a 7-day treatment course. Continue to encourage incentive spirometer use and mobilize patient as tolerated. Continue to encourage PEP therapy to mobilize any secretions. 2. History of heart failure with preserved ejection fraction/paroxysmal atrial fibrillation/coronary artery disease Complicates care, management, recovery and prognosis. Continue home medications as indicated. This note was generated with [employer] dictation software. It may contain incorrect words, spelling, and punctuation that were not noted in checking the note before signing. Subjective Subjective Patient reclined in bed, quietly resting. Patient easily awakens to questions and states he feels better as long as I am not doing anything. Patient continues to report decreased appetite, as well as right upper chest pain, worse with movement. Objective Data Lab / Micro Data Attestation: I reviewed the patient's lab results. Result Diagrams: 05/01/22 05:40 05/01/22 05:40 Physical Exam Const alert, oriented x3 and no apparent distress Constitutional Narrative: Elderly white male, oxygen in place. General Appearance: cooperative HEENT normocephalic, head/scalp atraumatic and moist oral mucous membranes Eyes PERRL, EOMs intact bilaterally and conjunctivae normal Neck supple General: trachea midline Chest inspection of chest normal Chest Narrative: Right axilla tender on palpation. Resp normal respiratory effort Resp Narrative: Grossly clear to auscultation bilaterally. Dry cough with deep inhalation or exhalation. Effort and Inspection: able to speak in complete sentences Cardio regular rate and regular rhythm GI normal to inspection, nondistended, normoactive bowel sounds Extremity no clubbing, cyanosis or edema Skin no rashes or lesions noted Neuro oriented x3, CN's II-XII intact bilaterally and moves all extremities Speech: speech normal Psych cooperative and affect normal
[2022-05-01] MEDS: APIXABAN 5 MG TABLET PO ×2 (09:29→20:34)
[2022-05-01] MEDS: levoFLOXacin IV 750 MG/150 ML BAG 100 MG IV (09:29)
[2022-05-01] MEDS: Pantoprazole Sodium 40 MG Tablet PO (09:30)
[2022-05-01] MEDS: Clopidogrel Bisulfate 75 MG Tablet PO (09:31)
[2022-05-01] MEDS: Finasteride 5 MG Tablet PO (09:31)
[2022-05-01] MEDS: 0.9% Saline Lock 10 ML Syringe IV (09:32)
--- NOTE | 2022-05-01 10:42 | PCM.PN.HOSP ---
Subjective Subjective Follow-up on acute hypoxia/RUL pneumonia: Patient was seen and examined. He admits to persistent coughing. He remains on 3 L of oxygen. He stated he is not oxygen at home. Denies any fever or chills. Objective Data Objective Data Vital Signs: Vital Signs Temp Pulse Resp BP Pulse Ox O2 Del Method O2 Flow Rate 98.0 F 76 20 H 119/59 L 94 Nasal Cannula 3 05/01/22 09:26 05/01/22 09:26 05/01/22 09:26 05/01/22 09:26 05/01/22 09:26 05/01/22 09:26 05/01/22 09:26 Oxygen Flow Rate (L/min) 3 Oxygen Delivery Method Nasal Cannula Weight: 95.453 kg Body Mass Index (BMI) 29.3 Intake & Output: Intake and Output for Last 24 Hours 04/29/22 04/30/22 05/01/22 23:59 23:59 23:59 Intake Total 1150.25 / 1350.25 2650.25 / 3450.25 1400 / 1400 Balance 1150.25 / 1350.25 2650.25 / 3450.25 1400 / 1400 Lab / Micro Data Result Diagrams: 05/01/22 05:40 05/01/22 05:40 Labs: Laboratory Results - last 24 hr 05/01/22 05:40: WBC 9.4, RBC 3.98 L, Hgb 12.2 L, Hct 37.6 L, MCV 94.5 H, MCH 30.7, MCHC 32.4, RDW Std Deviation 46.1 H, RDW Coeff of Gabby 13.2, Plt Count 303, MPV 9.8, Immature Gran % (Auto) 1.600 H, Neut % (Auto) 72.7 H, Lymph % (Auto) 11.0 L, [place] % (Auto) 13.1 H, Eos % (Auto) 1.3, Baso % (Auto) 0.3, Absolute Neuts (auto) 6.9, Absolute Lymphs (auto) 1.04, Nucleated RBC % 0 05/01/22 05:40: Sodium 139, Potassium 3.5, Chloride 105, Carbon Dioxide 26.0, Anion Gap 8, BUN 14, Creatinine 0.92, Estim Creat Clear Calc 75.03, Est GFR (MDRD) Af Amer 104, Est GFR (MDRD) Non-Af 86, BUN/Creatinine Ratio 15.3, Glucose 129 H, Calcium 8.5 Micro: Microbiology 04/29/22 15:35 Mucosa - Nose Respiratory Panel (PCR) - Final 04/29/22 18:00 Urine, Clean Catch Legionella Antigen - Final 04/29/22 18:00 Urine, Clean Catch Streptococcus pneumoniae Antigen (M - Final 04/29/22 15:35 Mucosa - Nose Influenza Types A,B Direct FA ([facility]) - Final Physical Exam Narrative Physical exam: General: Alert, Oriented x3, Cooperative, on 3 L oxygen HEENT: Atraumatic Oral: Moist Mucosa Neck: Supple Lungs: Diminished to auscultation Cardiovascular: HS I+II, regular, no murmurs Abdomen: Bowel Sounds Present, Soft, Non Tender Extremities: No edema Skin: No rashes, No breakdown Neurological: Grossly intact Psych/Mental Status: Appropriate Assessment & Plan Assessment/Plan (1) CAP (community acquired pneumonia): PLAN: Plan 1. Acute hypoxia secondary to acute right upper lobe pneumonia Status post failed outpatient therapy Urine Legionella and streptococcal antigens, respiratory panel, COVID-19 rapid antigen as well as PCR are negative Continue on Levaquin (DAY3) Encourage use of incentive spirometer 2. Heart failure with preserved ejection fraction, EF of 45 to 50%, grade 1 diastolic dysfunction Stable, not in acute exacerbation 3. Paroxysmal atrial fibrillation/hyperlipidemia/coronary artery disease continue Eliquis, Plavix, statin 4.DVT PPx?on Lovenox subcu Charges/Coding Visit Charges Inpatient E&M: 90169 Subs Hosp L2
--- NOTE | 2022-05-01 11:15 | CASEMGMT ---
SHOBHA HALE Face to Face with patient for initial transition planning/care coordination assessment. RN CM introduced self and role at [facility]. Patient lying in bed, alert and oriented. Patient willing to participate in assessment and is able to answer all questions appropriately. Care providers, pharmacy, and demographics verified. Patient wishes to discharge home, will monitor for need for HHC pending progress with therapy. Patient states he has no further needs or concerns at this time. CM to follow for discharge planning needs that may arise. PCP: Jose Specialists: Wanda instructor substitute cosmetologyJeyson Preferred Pharmacy: [facility] Insurance: [employer] Prescription Benefit: yes Living Will/HPOA: yes, daughter Allison Lewis LNOK: daughter, ex- Living Arrangements: Patient lives with ex- in a single story home with 3 steps and railing to enter the home. Patient states he is independent at home. Transportation: self, daughter DME/HHC: Patient has pulse ox at home. Patient states Jeyson is working on getting patient cpap for at home. Will monitor for home oxygen at discharge. No previous HHC or SNF. Disposition Plan: Patient to discharge home with family support and follow-up plans in place. Will monitor for HHC at discharge. Veronica REYES, RN, CM
[2022-05-01] MEDS: POLYMYXIN B SULF/TRIMETHOPRIM 10 ML DROPS OPHTHALMIC ×2 (12:30→20:35)
[2022-05-01] MEDS: Escitalopram Oxalate 10 MG Tablet PO (20:34)
[2022-05-01] MEDS: Atorvastatin Calcium 80 MG Tablet PO (20:34)
[2022-05-02] VITALS (11 sets, daily range): BP systolic 106–115; BP diastolic 65–69; PULSE 73–95; RESP 12–20; TEMP 36.6–37.1; O2SAT 91–100
[2022-05-02] MEDS: POLYMYXIN B SULF/TRIMETHOPRIM 10 ML DROPS OPHTHALMIC ×2 (04:30→12:22)
[2022-05-02] MEDS: Ipratropium/Albuterol Sulfate 3 ML AMPUL.NEB INHALATION ×3 (07:05→15:50)
[2022-05-02 07:24] LABS: Anion Gap 5 (5-15); BUN 14 mg/dL (7-18); BUN/Creat Ratio 14.9 RATIO (10-20); Calcium,Total 9.2 mg/dL (8.5-10.1); Chloride 104 mmol/L (98-107); Creatinine, Serum 0.94 mg/dL (0.70-1.30); EST Glomerular Filtration Rate 84 mL/min (>60); Est Glom Filt Rate - Afr Amer 101 mL/min (>60); Estimated Creatinine Clearance 73.43 ml/min; Glucose 124 mg/dL (74-106); Potassium 4.1 mmol/L (3.5-5.1); Sodium Level 138 mmol/L (136-145)
--- NOTE | 2022-05-02 08:27 | PN.CC_ITS ---
Documented by User: Dr. Pierce Fountain MD 05/02/22 14:16 Assessment & Plan Assessment/Plan (1) CAP (community acquired pneumonia): PLAN: Plan RECOMMENDATIONS: 1. Continue to wean supplemental oxygen to maintain saturations at or above 90%. 2. Encourage incentive spirometer and mobilize patient as tolerated. 3. Continue Levaquin to complete 7 days of therapy. Okay to transition to p.o. from my perspective. 4. Mobilize secretions with PEP therapy, guaifenesin ordered. 5. Encourage ambulation as tolerated. 6. If discharged, patient should follow-up in our office in 2 weeks. Repeat chest x-ray in 4 to 6 weeks recommended IMPRESSIONS: 1. Community-acquired pneumonia with associated hypoxemia The patient presented to the hospital with worsening respiratory symptoms and pleuritic type chest pain after failed outpatient treatment for community- acquired pneumonia. Infectious work-up has been largely unrevealing to date. The patient does have a small supplemental oxygen requirement. Plan to continue to wean O2 to maintain oxygen saturations at or above 90%. Continue Levaquin as ordered. Likely okay to transition to p.o. as patient is tolerating this well. Follow-up chest x-ray demonstrates improving right upper lobe pneumonia. The patient will need to complete a 7-day treatment course. Continue to encourage incentive spirometer use and mobilize patient as tolerated. Continue to encourage PEP therapy to mobilize any secretions. Patient should use Mucinex until productive cough ceases. 2. History of heart failure with preserved ejection fraction/paroxysmal atrial fibrillation/coronary artery disease Complicates care, management, recovery and prognosis. Continue home medications as indicated. This note was generated with [employer] dictation software. It may contain incorrect words, spelling, and punctuation that were not noted in checking the note before signing. Subjective Subjective Patient is sitting reclined in bed, with glasses on looking at his phone. Patient reports that he slept well and has improved appetite. Patient walked around the room yesterday and noted mild increase in endurance. Patient reports start of productive cough. Patient has been told that he will be discharged. Patient was encouraged to call over the weekend if he has issues. Patient will use the Mucinex until productive cough stops. Objective Data Objective Data Patient reports he had a walking oximetry earlier in the day and was able to ambulate on room air at 92%. Vital Signs: Vital Signs Temp Pulse Resp BP Pulse Ox O2 Del Method O2 Flow Rate 36.6 C 73 12 106/65 91 Nasal Cannula 4 05/02/22 04:35 05/02/22 07:05 05/02/22 07:05 05/02/22 04:35 05/02/22 07:05 05/02/22 07:05 05/02/22 07:05 Oxygen Flow Rate (L/min) 4 Oxygen Delivery Method Nasal Cannula Weight: 94.9 kg Body Mass Index (BMI) 29.3 Intake & Output: Intake and Output for Last 24 Hours 04/30/22 05/01/22 05/02/22 23:59 23:59 23:59 Intake Total 2650.25 / 3450.25 2330 / 2330 Balance 2650.25 / 3450.25 2330 / 2330 Lab / Micro Data Result Diagrams: 05/01/22 05:40 05/02/22 06:55 Labs: Laboratory Results - last 24 hr 05/02/22 06:55: Sodium 138, Potassium 4.1, Chloride 104, Carbon Dioxide 29.0, Anion Gap 5, BUN 14, Creatinine 0.94, Estim Creat Clear Calc 73.43, Est GFR (MDRD) Af Amer 101, Est GFR (MDRD) Non-Af 84, BUN/Creatinine Ratio 14.9, Glucose 124 H, Calcium 9.2 Micro: Microbiology 04/29/22 15:35 Mucosa - Nose Respiratory Panel (PCR) - Final 04/29/22 18:00 Urine, Clean Catch Legionella Antigen - Final 04/29/22 18:00 Urine, Clean Catch Streptococcus pneumoniae Antigen (M - Final 04/29/22 15:35 Mucosa - Nose Influenza Types A,B Direct FA ([facility]) - Final Physical Exam Narrative Independent exam was completed and I agree with the following Const alert, oriented x3 and no apparent distress General Appearance: cooperative HEENT normocephalic, head/scalp atraumatic and moist oral mucous membranes Eyes PERRL, EOMs intact bilaterally and conjunctivae normal Neck supple General: trachea midline Chest inspection of chest normal Resp normal respiratory effort Resp Narrative: Rales noted on right while in the right decubitus position Auscultation: diminished lung sounds; Negative for wheezes Cardio regular rate, regular rhythm, S1 normal heart sound, S2 normal heart sound, no murmurs, no rub and no gallops GI normal to inspection, nondistended, normoactive bowel sounds Extremity no clubbing, cyanosis or edema Skin no rashes or lesions noted Neuro oriented x3, CN's II-XII intact bilaterally and moves all extremities Psych cooperative and affect normal Charges/Coding Visit Charges Inpatient E&M: 08534 Subs Hosp L2 Documented by User: HILLARY MIR 05/02/22 08:52 Assessment & Plan Assessment/Plan (1) CAP (community acquired pneumonia): PLAN: Plan RECOMMENDATIONS: 1. Continue to wean supplemental oxygen to maintain saturations at or above 90%. 2. Encourage incentive spirometer and mobilize patient as tolerated. 3. Continue Levaquin to complete 7 days of therapy. Okay to transition to p.o. from my perspective. 4. Mobilize secretions with PEP therapy, guaifenesin ordered. 5. Encourage ambulation as tolerated. IMPRESSIONS: 1. Community-acquired pneumonia with associated hypoxemia The patient presented to the hospital with worsening respiratory symptoms and pleuritic type chest pain after failed outpatient treatment for community- acquired pneumonia. Infectious work-up has been largely unrevealing to date. The patient does have a small supplemental oxygen requirement. Plan to continue to wean O2 to maintain oxygen saturations at or above 90%. Continue Levaquin as ordered. Likely okay to transition to p.o. as patient is tolerating this well. Follow-up chest x-ray demonstrates improving right upper lobe pneumonia. The patient will need to complete a 7-day treatment course. Continue to encourage incentive spirometer use and mobilize patient as tolerated. Continue to encourage PEP therapy to mobilize any secretions. 2. History of heart failure with preserved ejection fraction/paroxysmal atrial fibrillation/coronary artery disease Complicates care, management, recovery and prognosis. Continue home medications as indicated. This note was generated with [employer] software. It may contain incorrect words, spelling, and punctuation that were not noted in checking the note before signing. Subjective Subjective Patient is sitting reclined in bed, with glasses on looking at his phone. Patient reports that he slept well and has improved appetite. Patient walked around the room yesterday and noted mild increase in endurance. Patient reports start of productive cough. Objective Data Lab / Micro Data Attestation: I reviewed the patient's lab results. Result Diagrams: 05/01/22 05:40 05/02/22 06:55 Physical Exam Const alert, oriented x3 and no apparent distress General Appearance: cooperative HEENT normocephalic, head/scalp atraumatic and moist oral mucous membranes Mouth: oral and palatal mucosa normal Eyes PERRL, EOMs intact bilaterally and conjunctivae normal Neck supple General: trachea midline Chest inspection of chest normal Chest Narrative: Right axilla tender to palpation. Resp normal respiratory effort Resp Narrative: Rales noted on right while in the right decubitus position, with scattered expiratory wheeze. Auscultation: wheezes and diminished lung sounds Cardio regular rate, regular rhythm, S1 normal heart sound, S2 normal heart sound, no murmurs, no rub and no gallops GI normal to inspection, nondistended, normoactive bowel sounds Extremity no clubbing, cyanosis or edema Skin no rashes or lesions noted Neuro oriented x3, CN's II-XII intact bilaterally and moves all extremities Psych cooperative and affect normal Psych Narrative: Patient is very pleasant. Speech: normal speech
[2022-05-02] MEDS: Pantoprazole Sodium 40 MG Tablet PO (08:34)
[2022-05-02] MEDS: APIXABAN 5 MG TABLET PO (08:34)
[2022-05-02] MEDS: Finasteride 5 MG Tablet PO (08:34)
[2022-05-02] MEDS: guaiFENesin 1,200 MG Tablet 1200 MG PO (10:36)
[2022-05-02] MEDS: 0.9% Saline Lock 10 ML Syringe IV (10:36)
[2022-05-02] MEDS: levoFLOXacin IV 750 MG/150 ML BAG 100 MG IV (10:36)
--- NOTE | 2022-05-02 10:42 | CASEMGMT ---
RN CM in to pt room, nurse at bedside. Discussed dc planning with patient. Provided pt with a verbal local in network list of DME companies, pt chose [employer] after much thought. Discussed HHC SN and therapy or outpt therapy for pt, pt declines the need for either. RN GEOFFREY to follow for oxygen.
--- NOTE | 2022-05-02 13:20 | DCINST_ITS ---
Discharge Instructions Diet Discharge Diet: No restrictions Activity Discharge Activity: Return to Normal Activity Follow Up Care Test Results: Test results from this visit will be discussed in further detail at your follow- up appointment, if applicable. Discharge Plan Admission Admit Date/Time: 04/30/22 11:26 Primary Reason for Your Visit: Pneumonia Attending Provider: Sadie Ashton Primary Care Provider: Jaison Charles Consulting Providers: Lauren Martin ; Pierce Fountain ; Umer Davidson ; Benson Garcia ; Josue Duckworth ; Barbara Camara NP ; Jaye Vickers Instructions Additional Instructions / Restrictions: Complete your antibiotics Continue to use your incentive spirometer Follow-up with your PCP within 1 week. Discharge Orders/Prescriptions Prescriptions: New Eliquis 5 mg Tablet 5 mg PO BID Qty: 0 0RF Mucus Relief ER 1,200 mg Tablet Extended Release 12hr 1,200 mg PO BID 7 Days Qty: 14 0RF levofloxacin 750 mg tablet 750 mg PO Q24H 4 Days Qty: 4 0RF Continued atorvastatin 80 mg tablet 80 mg PO DAILY Label Comments: 1 tablet by mouth as directed clopidogrel 75 mg tablet 75 mg PO MOWEFR Label Comments: 1 tablet by mouth as directed pantoprazole 40 mg tablet,delayed release (DR/EC) 40 mg PO DAILY Label Comments: 1 tablet by mouth as directed escitalopram oxalate 10 mg tablet 10 mg PO QHS Label Comments: TAKE 1 TABLET BY MOUTH ONCE DAILY dutasteride 0.5 mg capsule 0.5 mg PO DAILY Label Comments: TAKE 1 CAPSULE BY MOUTH ONCE DAILY FOR 90 DAYS polymyxin B sulf-trimethoprim Drops 1 drp OPHTHALMIC (EYE) Q6H cholecalciferol (vitamin D3) [Vitamin D3] 125 mcg (5,000 unit) Tablet 125 mcg PO DAILY bromfenac 0.075 % Drops 1 drp LEFT EYE QHS Rx Instructions: start on first post-op day Discontinued azithromycin 250 mg Tablet 250 mg PO DAILY Rx Instructions: start on day 2 of therapy Referrals / Follow Up: Jaison Charles MD [Primary Care Provider] - Disposition Disposition (needs filled in before D/C Order can be placed): Home, Self Care
--- NOTE | 2022-05-02 13:27 | PCM.DC.SUM ---
Providers Date of Admission: 04/30/22 Date of Discharge: 05/02/22 Primary Care Physician: Dr. Jaison Charles MD Consultations 04/29/22 15:31 Consult: Chief Librarian Circulation Department / Pulmonary Medicine Routine Consulting Provider: Pulmonary Medicine petar [place] Reason for Consult: AHRF 2/2 CAP EMERGENT Consult: No MD Notified: Yes Date Notified: 04/29/22 Time Notified: 15:13 Method of Notification: Verbal Reason For Visit: HYPOXIC RESP FAILURE Diagnosis Discharge Diagnosis (1) CAP (community acquired pneumonia): Status: Acute Code(s): J18.9 - Pneumonia, unspecified organism Plan 1. Acute hypoxia secondary to acute right upper lobe pneumonia 2.Chronic heart failure with preserved ejection fraction, EF of 45 to 50%, grade 1 diastolic dysfunction 3. Paroxysmal atrial fibrillation 4. Hyperlipidemia 5. Coronary artery disease Medications at Discharge Home Medications atorvastatin 80 mg tablet 80 mg PO DAILY 08/02/21 clopidogrel 75 mg tablet 75 mg PO MOWEFR 08/02/21 dutasteride 0.5 mg capsule 0.5 mg PO DAILY 08/02/21 escitalopram oxalate 10 mg tablet 10 mg PO QHS 08/02/21 pantoprazole 40 mg tablet,delayed release 40 mg PO DAILY 08/02/21 bromfenac 0.075 % eye drops 1 drp LEFT EYE QHS 04/29/22 cholecalciferol (vitamin D3) 125 mcg (5,000 unit) tablet (Vitamin D3) 125 mcg PO DAILY 04/29/22 polymyxin B sulfate-trimethoprim eye drops 1 drp ophthalmic (eye) Q6H 04/29/22 apixaban 5 mg tablet (Eliquis) 5 mg PO BID #0 tabs 05/02/22 guaifenesin 1,200 mg tablet, extended release 12 hr (Mucus Relief ER) 1,200 mg PO BID 7 days #14 tabs 05/02/22 levofloxacin 750 mg tablet 750 mg PO Q24H 4 days #4 tabs 05/02/22 Hospital Course Operations None Procedures None Summary of Care Provided Minutes Spent on Discharge: 40 Hospital Course: 76-year-old male with past medical history of paroxysmal atrial fibrillation, CAD status post stent, chronic diastolic CHF, who presented with complaints of shortness of breath and right-sided sharp pain. Patient has been having subjective fever and chills as well as decreased appetite in the outpatient. He was started on azithromycin in the outpatient but presented feeling worse. Patient was admitted to the emergency room. His vitals were stable except he was saturating 93% on room air initially but that dropped to 87%. Chest x-ray showed right upper lobe pneumonia. His white cell count was 10.8. Patient was admitted to the [facility] floor and started on IV Levaquin. Pulmonology was consulted. Patient continued to improve and was evaluated at discharge for oxygen and did not require oxygen. He was discharged on 4 more days of Levaquin making a total of 1 week. He was told to continue to use his incentive spirometer. He will need to follow-up with primary care doctor within 1 week. Physical Exam Narrative Physical exam: General: Alert, Oriented x3, Cooperative, off oxygen HEENT: Atraumatic Oral: Moist Mucosa Neck: Supple Lungs: Diminished to auscultation Cardiovascular: HS I+II, regular, no murmurs Abdomen: Bowel Sounds Present, Soft, Non Tender Extremities: No edema Skin: No rashes, No breakdown Neurological: Grossly intact Psych/Mental Status: Appropriate Weight / BMI Weight Weight: 94.9 kg Body Mass Index (BMI) 29.3 ABG / Lab / Microbiology Data Result Diagrams: 05/01/22 05:40 05/02/22 06:55 Laboratory: Laboratory Results - last 24 hr 05/02/22 06:55: Sodium 138, Potassium 4.1, Chloride 104, Carbon Dioxide 29.0, Anion Gap 5, BUN 14, Creatinine 0.94, Estim Creat Clear Calc 73.43, Est GFR (MDRD) Af Amer 101, Est GFR (MDRD) Non-Af 84, BUN/Creatinine Ratio 14.9, Glucose 124 H, Calcium 9.2 Microbiology: Microbiology 04/29/22 15:35 Mucosa - Nose Respiratory Panel (PCR) - Final 04/29/22 18:00 Urine, Clean Catch Legionella Antigen - Final 04/29/22 18:00 Urine, Clean Catch Streptococcus pneumoniae Antigen (M - Final 04/29/22 15:35 Mucosa - Nose Influenza Types A,B Direct FA (DANIELLA) - Final D/C Instructions Discharge Diet: No restrictions Meaningful Use Info Meaningful Use Diagnoses (Choose all that apply): None applicable Discharge Plan Admission Admit Date/Time: 04/30/22 11:26 Primary Reason for Your Visit: Pneumonia Attending Provider: Sadie Ashton Primary Care Provider: Jaison Charles Consulting Providers: Lauren Martin ; Pierce Fountain ; Umer Davidson ; Benson Garcia ; Josue Duckworth ; Barbara Camara NP ; Jaye Vickers Instructions Additional Instructions / Restrictions: Complete your antibiotics Continue to use your incentive spirometer Follow-up with your PCP within 1 week. Discharge Orders/Prescriptions Prescriptions: New Eliquis 5 mg Tablet 5 mg PO BID Qty: 0 0RF Mucus Relief ER 1,200 mg Tablet Extended Release 12hr 1,200 mg PO BID 7 Days Qty: 14 0RF levofloxacin 750 mg tablet 750 mg PO Q24H 4 Days Qty: 4 0RF Continued atorvastatin 80 mg tablet 80 mg PO DAILY Label Comments: 1 tablet by mouth as directed clopidogrel 75 mg tablet 75 mg PO MOWEFR Label Comments: 1 tablet by mouth as directed pantoprazole 40 mg tablet,delayed release (DR/EC) 40 mg PO DAILY Label Comments: 1 tablet by mouth as directed escitalopram oxalate 10 mg tablet 10 mg PO QHS Label Comments: TAKE 1 TABLET BY MOUTH ONCE DAILY dutasteride 0.5 mg capsule 0.5 mg PO DAILY Label Comments: TAKE 1 CAPSULE BY MOUTH ONCE DAILY FOR 90 DAYS polymyxin B sulf-trimethoprim Drops 1 drp OPHTHALMIC (EYE) Q6H cholecalciferol (vitamin D3) [Vitamin D3] 125 mcg (5,000 unit) Tablet 125 mcg PO DAILY bromfenac 0.075 % Drops 1 drp LEFT EYE QHS Rx Instructions: start on first post-op day Discontinued azithromycin 250 mg Tablet 250 mg PO DAILY Rx Instructions: start on day 2 of therapy Referrals / Follow Up: Jaison Charles MD [Primary Care Provider] - Disposition Disposition (needs filled in before D/C Order can be placed): Home, Self Care Charges/Coding Visit Charges Inpatient E&M: 31629 Disch Hosp
--- NOTE | 2022-05-02 13:45 | CASEMGMT ---
Addendum entered by Liza Pizano 05/02/22 13:50: Pt is aware he did not qualify for home oxygen. Pt states he is on eliquis at home 5mg po bid. Discussed Patient Link with patient and he is agreeable to this. Order placed at this time. Original Note: Pt did not qualify for home oxygen.
--- NOTE | 2022-05-02 15:16 | PHA.DC.MC ---
Pharmacy Service has performed discharge medication reconciliation and counseling for this patient. 1. GUAIFENESIN 1200MG PO BID X 7 DAYS 2. LEVOFLOXACIN 750MG PO DAILY X 4 DAYS The patient's discharge medication list was reviewed for discrepancies and discrepancies were resolved. Home Medications atorvastatin 80 mg tablet 80 mg PO DAILY 08/02/21 clopidogrel 75 mg tablet 75 mg PO MOWEFR 08/02/21 dutasteride 0.5 mg capsule 0.5 mg PO DAILY 08/02/21 escitalopram oxalate 10 mg tablet 10 mg PO QHS 08/02/21 pantoprazole 40 mg tablet,delayed release 40 mg PO DAILY 08/02/21 bromfenac 0.075 % eye drops 1 drp LEFT EYE QHS 04/29/22 cholecalciferol (vitamin D3) 125 mcg (5,000 unit) tablet (Vitamin D3) 125 mcg PO DAILY 04/29/22 polymyxin B sulfate-trimethoprim eye drops 1 drp ophthalmic (eye) Q6H 04/29/22 apixaban 5 mg tablet (Eliquis) 5 mg PO BID #0 tabs 05/02/22 guaifenesin 1,200 mg tablet, extended release 12 hr (Mucus Relief ER) 1,200 mg PO BID 7 days #14 tabs 05/02/22 levofloxacin 750 mg tablet 750 mg PO Q24H 4 days #4 tabs 05/02/22 The patient was counseled on the following discharge medications and changes in medications for homegoing were reviewed. The Reason for Use, instructions for use, and potential side effects were reviewed for all new medications. The patient's questions regarding all of their medications were answered. The patient was able to verbally demonstrate an understanding of their discharge medications. Patient counseled by pharmacy cashierChristine.
== END 2022-05-02 16:37 | disposition home or self-care (01) | DRG 194 ==
LOC: ED 12:13 → MS3 13:51
PROVIDERS: Internal Medicine Critical Care Medicine; Admitting Provider Internal Medicine; Emergency Provider Student in an Organized Health Care Education/Training Program; PCP Internal Medicine; Visit Provider Internal Medicine
DX: J18.9 Pneumonia, unspecified organism (principal); I50.32 Chronic diastolic (congestive) heart failure; E78.5 Hyperlipidemia, unspecified; I48.0 Paroxysmal atrial fibrillation; I25.10 Atherosclerotic heart disease of native coronary artery without angina pectoris; R09.02 Hypoxemia; Z20.822 Contact with and (suspected) exposure to COVID-19; Z79.01 Long term (current) use of anticoagulants; Z79.02 Long term (current) use of antithrombotics/antiplatelets; Z79.899 Other long term (current) drug therapy; Z87.891 Personal history of nicotine dependence
CPT/HCPCS: 36415; 71045; 71046; 80048; 80053; 83735; 84443; 84484; 85025; 87449; 87633; 87635; 87641; 87804; 93005; 94640; 94668; 94762; 97162; 97802; 99251; 99285; J7030; J7050; A4216; G0463; U0003; U0005

== ENCOUNTER → 2022-07-21 | Outpatient (CLI) | payer MEDICARE, SELFPAY ==
--- NOTE | 2022-07-21 12:14 | RAD_ITS ---
STUDY: X-RAY CHEST REASON FOR EXAM: Male, 76 years old. Pneumonia TECHNIQUE: PA and lateral views of the chest. COMPARISON: Comparison is made with prior study from 04/30/2022. FINDINGS: Hyperinflation. The previously seen right upper lobe consolidation has cleared. Mild residual changes at the lung bases suggestive of scarring with blunting of both clustering angles. Small calcified granuloma in the right upper lobe. A left-sided dual-chamber pacemaker is seen. Normal mediastinum and salty. There is prominence of the pulmonary hilar arteries without peripheral pulmonary vascular congestion, suggesting pulmonary hypertension. There is atherosclerotic tortuosity of the aortic arch and descending thoracic aorta. There are diffuse degenerative changes of the visualized thoracic spine. Normal visualized ribs, clavicles, and shoulders. There is no demonstrated abnormality of the visualized soft tissue structures of the upper abdomen. RAD/Chest PA and Lateral IMPRESSION: Interval clearing of the right upper lobe infiltrate. Hyperinflation. Mild residual increased markings at the lung bases suggestive of scarring. Electronically Signed: Kyle Kitchen MD at 15:10 EST ,
== END | disposition home or self-care (01) ==
LOC: RAD 12:14
PROVIDERS: PCP Internal Medicine; Visit Provider Internal Medicine Critical Care Medicine
DX: J18.9 Pneumonia, unspecified organism (principal)
CPT/HCPCS: 71046